=== PATIENT | female | born 1965 | race Caucasian/White ===

== ENCOUNTER → 2020-11-21 | Outpatient (CLI) | payer OTHER ==
[~2020-11-21] MED LIST: CLONAZEPAM 0.50.5 M1 PO; IBUPROFEN 800800 MG PO; ZYRTEC 10 MG TA10 M1 PO
--- NOTE | 2020-11-21 12:18 | 2DMMODE ---
[place] [address] 2 D/M-MODE ECHOCARDIOGRAM Name: GINA BUENROSTRO Room: [facility]#: [id number] Admission: 11/21/20 Attend Phys: Matty Willis Discharge: Date of : 69 Date of Service: 11/21/20 1218 Report #: [id number] THIS REPORT FOR: cc: SUNNY SU DEBRA L FNP Blick, David R. MD [facility] ~ APPROVED REPORT Study performed: 11/21/2020 10:56:36 EXAM: Comprehensive 2D, Doppler, and color-flow Echocardiogram Patient Location: Out-Patient BSA: 1.88 HR: 74 bpm BP: 128/70 mmHg Other Information Study Quality: Excellent Indications Mitral Valve Prolapse 2D Dimensions IVSd: 10.18 (7-11mm) LVOT Diam: 19.76 (18-24mm) LVDd: 46.55 mm PWd: 7.95 (7-11mm) Ascending Ao: 22.98 (22-36mm) LVDs: 26.29 (25-40mm) Aortic Root: 24.37 mm Volumes Left Atrial Volume (Systole) LA ESV Index: 11.70 mL/m2 Aortic Valve AoV Peak Manan.: 1.01 m/s AO Peak Gr.: 4.12 mmHg LVOT Max P.38 mmHg AO Mean Gr.: 2.25 mmHg LVOT Mean P.54 mmHg LVOT Max V: 0.92 m/s AO V2 VTI: 23.00 cm LVOT Mean V: 0.57 m/s CHRISSY (VTI): 2.62 cm2 LVOT V1 VTI: 19.66 cm Mitral Valve E/A Ratio: 0.78 [place] [address] 2 D/M-MODE ECHOCARDIOGRAM Name: GINA BUENROSTRO Room: [facility]#: [id number] Admission: 11/21/20 Attend Phys: Matty Willis Discharge: Date of : 69 Date of Service: 11/21/20 1218 Report #: [id number] MV Decel. Time: 209.27 ms MV E Max Manan.: 0.55 m/s MV PHT: 60.69 ms MVA (PHT): 3.63 cm2 TDI E/Lateral E': 6.11 E/Medial E': 5.00 Medial E' Manan.: 0.11 m/s Lateral E' Manan.: 0.09 m/s Pulmonary Valve PV Peak Manan.: 0.80 m/s PV Peak Gr.: 2.56 mmHg Tricuspid Valve RAP Estimate: 5.00 mmHg TR Peak Gr.: 15.68 mmHg RVSP: 20.68 mmHg PA Pressure: 20.68 mmHg Left Ventricle The left ventricle is normal size. There is normal LV segmental wall motion. There is normal left ventricular wall thickness. Left ventricular systolic function is normal. The left ventricular ejection fraction is within the normal range. LVEF is 50-55%. Grade I - abnormal relaxation pattern. Right Ventricle The right ventricle is normal size. The right ventricular systolic function is normal. Atria The left atrium size is normal. The right atrium size is normal. Aortic Valve The aortic valve is normal in structure. No aortic regurgitation is present. There is no aortic valvular stenosis. Mitral Valve The mitral valve is normal in structure. Trace mitral regurgitation. No evidence of mitral valve stenosis. There is mild mitral valve prolapse. Tricuspid Valve The tricuspid valve is normal in structure. There is trace tricuspid valve [place] [address] 2 D/M-MODE ECHOCARDIOGRAM Name: LUANNEOVIDIOMILTON MORELANDGINA L Room: [facility]#: [id number] Admission: 11/21/20 Attend Phys: Matty Willis Discharge: Date of : 69 Date of Service: 11/21/20 1218 Report #: [id number] Pulmonic Valve The pulmonary valve is normal in structure. Trace pulmonic regurgitation. Great Vessels The aortic root is normal in size. IVC is normal in size and collapses >50% with inspiration. Pericardium There is no pericardial effusion. <Conclusion> Left ventricular systolic function is normal. The left ventricular ejection fraction is within the normal range. <ELECTRONICALLY SIGNED> By: Dale Gould MD, FACC 11/21/20 1218 1218 1218 Dale Gould MD, FACC /INF
== END ==
LOC: M.CRD 10:59
PROVIDERS: ATTEND Neurological Surgery
DX: I34.0 Nonrheumatic mitral (valve) insufficiency (principal); I34.1 Nonrheumatic mitral (valve) prolapse